=== PATIENT | male | born 1950 | race Caucasian/White ===

== ENCOUNTER → 2019-04-22 09:03 | Outpatient (BNVA) | payer MEDICARE, SELFPAY | PROVIDERS: Family Provider Family Medicine; PCP Family Medicine; Visit Provider Urology | DX: N40.1 Benign prostatic hyperplasia with lower urinary tract symptoms (principal); R97.20 Elevated prostate specific antigen [PSA] | CPT/HCPCS: 81001 ==

== ENCOUNTER → 2019-08-21 08:24 | Outpatient (BNVA) | payer MEDICARE, SELFPAY | PROVIDERS: Family Provider Family Medicine; PCP Family Medicine; Visit Provider Urology | DX: R97.20 Elevated prostate specific antigen [PSA] (principal); N40.1 Benign prostatic hyperplasia with lower urinary tract symptoms; R39.15 Urgency of urination | CPT/HCPCS: 81001; 84153 ==

== ENCOUNTER 2020-04-06 12:55 | Outpatient (CLI) | payer MEDICARE, SELFPAY ==
--- NOTE | 2020-04-06 13:11 | XR_ITS ---
WS: [id number] Exam: XR ribs LT 2V* [id number] Date/Time of Exam: 04/06/2020 1:11 PM Reason For Exam: LEFT SIDED RIB PAIN No acute rib fracture or pneumothorax. No pleural or pulmonary reactive changes. XR/XR ribs LT 2V* [id number] IMPRESSION: 1. No acute left rib fracture or pneumothorax.
--- NOTE | 2020-04-06 13:11 | XR_ITS ---
WS: [id number] Exam: XR chest 2V* [id number] Date/Time of Exam: 04/06/2020 1:11 PM Reason For Exam: LEFT SIDED RIB PAIN The lungs are clear and fully expanded. No acute rib fracture or pneumothorax is seen. Normal cardiom ediastinal structures and bony elements. Old posterior right fifth rib fracture noted. XR/XR chest 2V* [id number] IMPRESSION: 1. No acute cardiopulmonary finding. 2. No acute rib fracture or pneumothorax.
== END 2020-04-06 12:56 | disposition home or self-care (01) ==
PROVIDERS: PCP Family Medicine; Visit Provider Family Medicine
DX: R07.81 Pleurodynia (principal)
CPT/HCPCS: 71046; 71100

== ENCOUNTER 2020-08-31 14:03 | Emergency (ER) | payer MEDICARE, SELFPAY ==
[2020-08-31 14:15] VITALS: BP 165/96; PULSE 65; RESP 16; TEMP 36.8; O2SAT 98; BMI 29.6
--- NOTE | 2020-08-31 14:22 | ED_ITS ---
HPI - General Adult General: Chief complaint: Recheck/Abnormal Lab/Rx Stated complaint: Rabies shot Time Seen by Provider: 08/31/20 14:05 Source: patient Mode of arrival: ambulatory Limitations: no limitations History of Present Illness: HPI narrative: Patient is a 70-year-old male who presents to ED today along with his after they were referred here by the local health department for rabies post-exposure prophylaxis. Patient tells me him and his were helping out with two of their neighbors horses who suddenly became ill. states that one of the horses began foaming at the mouth and had diffuse neurological symptoms to the point where it could no longer stand or it would tip over. She states horse was acting very abnormal. They state shortly after the second horse then became ill with identical symptoms. There was no direct contact with animal saliva that they are aware of but states horse was slinging it everywhere . Animals were put down and [facility] came and sent one of the heads to be tested for rabies. Patient contacted local Health Dept who recommended starting rabies PEP. Onset (ago): day(s) Associated symptoms: Reports no associated symptoms; Deny chest pain, confusion, dyspnea, headache(s), malaise, nausea, rash or vomiting Treatments prior to arrival: none Review of Systems Const: Denies: fever(s), chills, body aches, change in appetite, change in weight, fatigue, malaise or night sweats Eyes: Denies: change in vision or blurry vision ENMT: Denies: throat pain or odynophagia Card: Denies: chest pain Resp: Denies: dyspnea GI: Denies: abdominal pain, nausea, vomiting or diarrhea Musc: Denies: neck pain, back pain or joint pain Skin/Breast: Denies: rash Neuro: Denies: headache(s), numbness in extremities, weakness in extremities, sensory changes, lack of coordination, difficulty walking, dizziness, confusion, behavioral changes, Slurred speech present, difficulty communicating thoughts, seizure-like activity or involuntary movements PFS ED PFSH: Medical History (Updated 08/31/20 @ 14:27 by STEPHANIE Bird) BPH loc w urin obs/LUTS Elevated PSA Lesion of bladder Reports transurethral resection in 2014. No additional information known Surgical History H/O eye surgery History of rhinoplasty History of vasectomy Family History Mother , 60 Cancer liver Father , 96 No problems noted. Social History Smoking and tobacco status: current every day smoker smokeless tobacco Alcohol intake: current Alcohol intake frequency: 0-2 Drinks per Day Marital status: Current occupational status: retired History of recent travel: No Physical Exam Const: COMMON NORMALS: no acute distress, patient oriented x3, no limitations and alert GENERAL APPEARANCE: cooperative ORIENTATION/CONSCIOUSNESS: Yes awake, Yes oriented to person, Yes oriented to place and Yes oriented to time HENMT: COMMON NORMALS: normocephalic and atraumatic HEAD & SCALP: normocephalic and atraumatic Extremity: GENERAL: Yes normal exam except as noted Neuro: RENATO COMA SCALE: document GCS findings Bison coma scale eye opening: Spontaneous Bison coma scale verbal response: Orientated Bison coma scale motor response: Obey commands Bison coma scale total score: 15 COMMON NORMALS: patient oriented x3 SENSORIUM/ORIENTATION: Yes alert, Yes oriented to person, Yes oriented to place and Yes oriented to time Skin: COMMON NORMALS: no rashes or lesions noted GENERAL SKIN EXAM: no rashes or lesions noted Course Vital Signs: Vital signs: Vital Signs Temperature 98.2 F 08/31/20 14:15 Pulse Rate 65 08/31/20 14:39 Respiratory Rate 16 08/31/20 14:39 Blood Pressure 165/96 08/31/20 14:39 Pulse Oximetry 98 08/31/20 14:39 Discharge Plan Discharge Patient Disposition: Home Clinical Impression: Need for post exposure prophylaxis for rabies Condition: Stable Prescriptions: No Action oxybutynin chloride 5 mg tablet 5 mg PO DAILY Qty: 30 RF: 6 loratadine [Allergy Relief (loratadine)] 10 mg tablet 10 mg PO DAILY PRNRF: 0 atenolol 50 mg tablet 50 mg PO DAILY RF: 0 tamsulosin 0.4 mg capsule 0.4 mg PO BID Qty: 60 RF: 12 Discharge Orders: Discharge ED (Routine); Ordered 08/31/20 Ordered By: Jacqueline Perez Referrals: Robles Cuevas MD [Primary Care Provider] - Patient Instructions: Rabies Vaccine (Injection), Rabies Immune Globulin (Injection), Rabies (ED) Activity Restrictions/Additional Instructions: You have been given a schedule for the remainder of your immunizations required for your full post exposure prophylaxis course. These can be completed at [facility]. Coding Level of Care Code ED Stick Feeder for Chg Fwd Exam Detailed
[2020-08-31 14:39] VITALS: BP 165/96; PULSE 65; RESP 16; O2SAT 98
[2020-08-31] MEDS: rabies vaccine 2.5 unit SDV IM (15:03)
== END 2020-08-31 15:15 | disposition home or self-care (01) ==
PROVIDERS: Emergency Provider Physician Assistant; PCP Family Medicine
DX: Z29.14 Encounter for prophylactic rabies immune globulin (principal); Z20.3 Contact with and (suspected) exposure to rabies; Z23 Encounter for immunization; F17.210 Nicotine dependence, cigarettes, uncomplicated
CPT/HCPCS: 90375; 90471; 90675; 96372; 99283

== ENCOUNTER → 2020-10-06 15:05 | Outpatient (BNVA) | payer MEDICARE, SELFPAY | PROVIDERS: PCP Family Medicine; Visit Provider Urology | DX: R97.20 Elevated prostate specific antigen [PSA] (principal); N40.1 Benign prostatic hyperplasia with lower urinary tract symptoms | CPT/HCPCS: 81003; 84153 ==

== ENCOUNTER 2021-09-30 07:28 | Outpatient (CLI) | payer MEDICARE, SELFPAY ==
[2021-09-30 08:35] LABS: Prostate Specific AG Urology 5.55 ng/mL (0-4)
== END 2021-09-30 07:29 | disposition home or self-care (01) ==
PROVIDERS: PCP Family Medicine; Visit Provider Urology
DX: N40.1 Benign prostatic hyperplasia with lower urinary tract symptoms; R39.15 Urgency of urination; R97.20 Elevated prostate specific antigen [PSA]
CPT/HCPCS: 36415; 51741; 51798; 81003; 84153; 99213

== ENCOUNTER 2021-10-14 08:10 | Outpatient (CLI) | payer MEDICARE, SELFPAY ==
[2021-10-14 08:53] LABS: Blood Urea Nitrogen 15 mg/dL (8-23)
[2021-10-14] MEDS: iohexol 350 mg/mL 100 mL Btl IV (09:03)
--- NOTE | 2021-10-14 09:30 | CT_ITS ---
WS: [id number] CT scan of the abdomen and pelvis without Oral and with IV contrast. Additional two-dimensional cor onal and sagittal reconstruction was performed. 10/14/2021 Clinical Data: LLQ abd pain Comparison: CT pelvis, 12/10/2018. DLP: 1352.[address] scans at [facility] use at least one of these dose optimization techniques: automated e xposure control; mA and/or kV adjustment per patient size (includes targeted exams where dose is matc hed to clinical indication); or iterative reconstruction. Findings: The lower lungs show no nodules, masses or effusions. The liver, gallbladder, spleen and pancreas are normal. There are probable cysts in the liver. The ri ght adrenal gland is normal. The left adrenal gland shows a round density measuring 2.7 cm which is p robably an adrenal adenoma or adrenal myolipoma. The kidneys show equal bilateral contrast excretion with a right renal cyst. No masses, hydronephrosi s or renal calculi are seen.. The abdominal aorta is normal in size with minimal calcification in the wall.. No appendicitis or diverticulitis is seen. The stomach, small bowel and colon are normal. No abscess, adenopathy, ascites, obstruction or free air is seen. The bladder is unremarkable. No inguinal hernia is seen. The prostate is enlarged. There is a small u mbilical hernia containing only fat. The bones of the lower thorax, lumbar spine, pelvis, and hips show only osteoarthritis of the lower t horacic vertebral bodies and degenerative disc narrowing at L4-L5 and L5-S1.. CT/CT abdomen pelvis w con* [id number] Impression: 1. Negative for acute intra-abdominal or pelvic abnormalities. 2. Probable left adrenal adenoma measuring 2.7 cm. 3. Prostate enlargement.
== END 2021-10-14 08:11 | disposition home or self-care (01) ==
LOC: RAD 08:12
PROVIDERS: PCP Family Medicine; Visit Provider Family Medicine
DX: R10.32 Left lower quadrant pain (principal); N40.0 Benign prostatic hyperplasia without lower urinary tract symptoms
CPT/HCPCS: 74177; 82565; 84520

== ENCOUNTER → 2021-11-02 10:00 | Outpatient (BNVA) | payer MEDICARE, SELFPAY | PROVIDERS: PCP Family Medicine; Visit Provider Family Medicine | DX: Z00.00 Encounter for general adult medical examination without abnormal findings (principal); Z79.899 Other long term (current) drug therapy | CPT/HCPCS: 80053; 80061 ==

== ENCOUNTER 2022-06-19 08:07 | Emergency (ER) | payer MEDICARE, SELFPAY ==
[2022-06-19 08:23] VITALS: BP 207/101; PULSE 74; TEMP 36.4; O2SAT 96; BMI 29.6
--- NOTE | 2022-06-19 08:32 | W.ED.MALEGU ---
Documented by User: STEPHANIE Stanford 06/20/22 13:31 HPI - Male Genitourinary General: Chief complaint: Urogenital-Male Stated complaint: cant urinate Time Seen by Provider: 06/19/22 08:09 History of Present Illness: Patient is a 72-year-old male comes to the ED unable to urinate. Patient has a history of BPH. He has never had urinary retention before. He says yesterday was able to urinate normally. This morning he woke up and had a full bladder and was only able to dribble out a little bit of urine. He is very uncomfortable due to bladder pressure. He endorses having a little bit of burning pain with urination. He is a current patient of Dr. Howard. He denies any fevers, chills, chest pain, abdominal pain, nausea/vomiting or bowel symptoms. Associated symptoms: Reports dysuria; Deny hematuria, nausea or vomiting Review of Systems Const: Denies: fever(s), chills or fatigue Eyes: Denies: change in vision or eye discomfort ENMT: Denies: throat pain, odynophagia, nasal discharge or nasal congestion Card: Denies: chest pain, palpitations, edema, swelling of feet/ankles, dyspnea on exertion or orthopnea Resp: Denies: dyspnea, productive cough or non-productive cough GI: Denies: abdominal pain, nausea, vomiting, diarrhea, constipation or hematochezia : Reports: difficulty urinating (can't urinate) and dysuria; Denies: flank pain or hematuria Musc: Denies: neck pain, back pain or extremity swelling Skin/Breast: Denies: rash or new lesions Neuro: Denies: headache(s), numbness in extremities or weakness in extremities [facility] ED PFSH: Medical History (Updated 06/19/22 @ 09:49 by STEPHANIE Stanford) BPH loc w urin obs/LUTS Elevated PSA Lesion of bladder Reports transurethral resection in 2014. No additional information known Surgical History H/O eye surgery History of rhinoplasty History of vasectomy Family History Mother , 60 Cancer liver Father , 96 No problems noted. Social History Smoking and tobacco status: current every day smoker smokeless tobacco Alcohol intake: current Alcohol intake frequency: 0-2 Drinks per Day Marital status: Current occupational status: retired Physical Exam Const: COMMON NORMALS: patient oriented x3 HENMT: COMMON NORMALS: normocephalic HEAD & SCALP: normocephalic MOUTH: Normal oral and palatal mucosa present THROAT: posterior oropharynx normal and uvula midline Neck/C-Spine: COMMON NORMALS: supple GENERAL: Yes normal visual inspection Resp: COMMON NORMALS: normal respiratory effort, No retractions, No use of accessory muscles and clear to auscultation bilaterally AUSCULTATION: clear to auscultation bilaterally Cardio: COMMON NORMALS: regular rate, regular rhythm, S1 normal heart sound present, S2 normal heart sound present, No gallops present (Cardio), No clicks present (Cardio), No murmurs present (Cardio) and Peripheral pulses 2+ throughout RATE: regular rate RHYTHM: regular rhythm HEART SOUNDS: S1 normal heart sound present and S2 normal heart sound present PERIPHERAL PULSES: Peripheral pulses 2+ throughout GI: COMMON NORMALS: Normal to inspection, nondistended, normoactive bowel sounds present, Soft to palpation, non-tender and no masses PALPATION: Yes Soft to palpation and Yes Bladder palpation abnormal : COMMON NORMALS: Yes no CVA tenderness BLADDER/KIDNEY EXAM: Yes no CVA tenderness and Yes Bladder palpation abnormal Bladder abnormal details: distended midway to the umbilicus Back/Pelvis: COMMON NORMALS: no CVA tenderness Extremity: COMMON NORMALS: normal to inspection Neuro: COMMON NORMALS: patient oriented x3 GAIT: Yes Normal gait present Skin: GENERAL SKIN EXAM: dry skin Course Vital Signs: Vital signs: Vital Signs Temperature 97.5 F L 06/19/22 08:23 Pulse Rate 70 06/19/22 10:13 Respiratory Rate 16 06/19/22 09:58 Blood Pressure 170/89 06/19/22 10:13 Pulse Oximetry 92 06/19/22 10:13 Oxygen Delivery Me thod 06/19/22 08:23 MDM - Male Medical Decision Making Patient is a 72-year-old male comes to the ED unable to urinate. Patient has a history of BPH. He has never had urinary retention before. He says yesterday was able to urinate normally.vitals are stable. Bladder palpated midway to the umbilicus. Nurse performed bladder scan patient had over 650 mL in bladder. Villanueva catheter was placed and 700 mL drained out. Patient felt immediate relief. UA was unremarkable. Patient diagnosed with acute retention of urine and I placed an order with case management for patient referred to Dr. Howard for follow-up. He was sent home with Villanueva catheter. Patient is a current patient of Dr. Howard's. Lab Data Laboratory Results Urine Color Yellow (Yellow) 06/19/22 08:59 Urine Appearance Clear (CLEAR) 06/19/22 08:59 Urine pH 5 (5-7) 06/19/22 08:59 Ur Specific [place] 1.010 (1.005-1.030) 06/19/22 08:59 Urine Protein Neg (Negative) 06/19/22 08:59 Urine Glucose (UA) Norm (Normal) 06/19/22 08:59 Urine Ketones Negative (Negative) 06/19/22 08:59 Urine Blood 3+ (Negative) H 06/19/22 08:59 Urine Nitrate Negative (Negative) 06/19/22 08:59 Urine Bilirubin Neg (Negative) 06/19/22 08:59 Urine Urobilinogen Norm mg/dL (Negative) 06/19/22 08:59 Ur Leukocyte Esterase Negative (Negative) 06/19/22 08:59 Urine RBC >100 /hpf (0-2) H 06/19/22 08:59 Urine WBC 0-4 /hpf (0-5) H 06/19/22 08:59 Ur Squamous Epith Cells 0-4 /hpf (0-5) H 06/19/22 08:59 Amorphous Sediment Not Reportable 06/19/22 08:59 Urine Bacteria Trace /hpf (NONE) 06/19/22 08:59 Discharge Plan Discharge Patient Disposition: Home Clinical Impression: Acute retention of urine Condition: Stable Prescriptions: No Action loratadine [Allergy Relief (loratadine)] 10 mg tablet 10 mg PO DAILY PRN azithromycin 250 mg tablet See Rx Instructions PO .COMPLEX Qty: 6 0RF Rx Instructions: For 250 mg dose pack: take 500 mg today (day 1), then 250 mg for 4 days (days 2-5) PO prednisone 20 mg tablet 20 mg PO DAILY Qty: 5 0RF promethazine-DM 6.25-15 mg/5 mL syrup 5 ml PO Q6H PRN (Reason: cough) Qty: 118 0RF tamsulosin 0.4 mg capsule See Rx Instructions .ROUTE .COMPLEX Qty: 180 3RF Dose Instruction: Take 1 capsule by mouth twice daily Rx Instructions: Take 1 capsule by mouth twice daily atenolol 50 mg tablet See Rx Instructions .ROUTE .COMPLEX Qty: 30 11RF Dose Instruction: Take 1/2 (one-half) tablet by mouth twice daily Rx Instructions: Take 1/2 (one-half) tablet by mouth twice daily Discharge Orders: Discharge ED (Routine); Ordered 06/19/22 Ordered By: Walter Hussein Referrals: Robles Cuevas MD [Primary Care Provider] - Discharge Diet: Regular Discharge Activity: Increase activity as tolerated Patient Instructions: Urinary Retention in Men (ED), Villanueva Catheter Placement and Care (ED) Activity Restrictions/Additional Instructions: Follow-up with medical provider as directed. Case management to be contacted in the next several days to set up an appointment with Dr. Howard for follow-up. Keep Villanueva catheter in place and nurse will discharge home with instructions on catheter care. Continue taking all home medications as previously prescribed. Return to the ER or your medical provider if condition worsens. Please read and understand discharge instructions. Thank you for choosing [facility] for your healthcare needs today. Please realize this is an emergency room and that we are providing you with a medical screening exam and this may not be complete and all inclusive of all the testing and or work up that you may need to determine your ailment or severity of your illness. It is very important that you follow up as instructed or that you return to the Emergency Department should you have concerns or if your condition changes or worsens in any way. Coding Level of Care Code ED Feeder Operator Automatic for g Fwd Documented by User: Edmundo Castillo DO 06/20/22 18:32 HPI - Male Genitourinary General: Chief complaint: Urogenital-Male Stated complaint: cant urinate Time Seen by Provider: 06/19/22 08:09 [facility] ED [facility]: Medical History (Updated 06/19/22 @ 09:49 by STEPHANIE Stanford) BPH loc w urin obs/LUTS Elevated PSA Lesion of bladder Reports transurethral resection in 2014. No additional information known Surgical History H/O eye surgery History of rhinoplasty History of vasectomy Family History Mother , 60 Cancer liver Father , 96 No problems noted. Social History Smoking and tobacco status: current every day smoker smokeless tobacco Alcohol intake: current Alcohol intake frequency: 0-2 Drinks per Day Marital status: Current occupational status: retired Course Vital Signs: Vital signs: Vital Signs Temperature 97.5 F L 06/19/22 08:23 Pulse Rate 70 06/19/22 10:13 Respiratory Rate 16 06/19/22 09:58 Blood Pressure 170/89 06/19/22 10:13 Pulse Oximetry 92 06/19/22 10:13 Oxygen Delivery Me thod 06/19/22 08:23 MDM - Male Medical Decision Making Patient is a 72-year-old male comes to the ED unable to urinate. Patient has a history of BPH. He has never had urinary retention before. He says yesterday was able to urinate normally.vitals are stable. Bladder palpated midway to the umbilicus. Nurse performed bladder scan patient had over 650 mL in bladder. Villanueva catheter was placed and 700 mL drained out. Patient felt immediate relief. UA was unremarkable. Patient diagnosed with acute retention of urine and I placed an order with case management for patient referred to Dr. Howard for follow-up. He was sent home with Villanueva catheter. Patient is a current patient of Dr. Howard's. Chart reviewed and patient discussed with midlevel. Agree with assessment and plan. Lab Data Laboratory Results Urine Color Yellow (Yellow) 06/19/22 08:59 Urine Appearance Clear (CLEAR) 06/19/22 08:59 Urine pH 5 (5-7) 06/19/22 08:59 Ur Specific [place] 1.010 (1.005-1.030) 06/19/22 08:59 Urine Protein Neg (Negative) 06/19/22 08:59 Urine Glucose (UA) Norm (Normal) 06/19/22 08:59 Urine Ketones Negative (Negative) 06/19/22 08:59 Urine Blood 3+ (Negative) H 06/19/22 08:59 Urine Nitrate Negative (Negative) 06/19/22 08:59 Urine Bilirubin Neg (Negative) 06/19/22 08:59 Urine Urobilinogen Norm mg/dL (Negative) 06/19/22 08:59 Ur Leukocyte Esterase Negative (Negative) 06/19/22 08:59 Urine RBC >100 /hpf (0-2) H 06/19/22 08:59 Urine WBC 0-4 /hpf (0-5) H 06/19/22 08:59 Ur Squamous Epith Cells 0-4 /hpf (0-5) H 06/19/22 08:59 Amorphous Sediment Not Reportable 06/19/22 08:59 Urine Bacteria Trace /hpf (NONE) 06/19/22 08:59 Discharge Plan Discharge Patient Disposition: Home Clinical Impression: Acute retention of urine Condition: Stable Prescriptions: No Action loratadine [Allergy Relief (loratadine)] 10 mg tablet 10 mg PO DAILY PRN azithromycin 250 mg tablet See Rx Instructions PO .COMPLEX Qty: 6 0RF Rx Instructions: For 250 mg dose pack: take 500 mg today (day 1), then 250 mg for 4 days (days 2-5) PO prednisone 20 mg tablet 20 mg PO DAILY Qty: 5 0RF promethazine-DM 6.25-15 mg/5 mL syrup 5 ml PO Q6H PRN (Reason: cough) Qty: 118 0RF tamsulosin 0.4 mg capsule See Rx Instructions .ROUTE .COMPLEX Qty: 180 3RF Dose Instruction: Take 1 capsule by mouth twice daily Rx Instructions: Take 1 capsule by mouth twice daily atenolol 50 mg tablet See Rx Instructions .ROUTE .COMPLEX Qty: 30 11RF Dose Instruction: Take 1/2 (one-half) tablet by mouth twice daily Rx Instructions: Take 1/2 (one-half) tablet by mouth twice daily Discharge Orders: Discharge ED (Routine); Ordered 06/19/22 Ordered By: Walter Hussein Referrals: Robles Cuevas MD [Primary Care Provider] - Discharge Diet: Regular Discharge Activity: Increase activity as tolerated Patient Instructions: Urinary Retention in Men (ED), Villanueva Catheter Placement and Care (ED) Activity Restrictions/Additional Instructions: Follow-up with medical provider as directed. Case management to be contacted in the next several days to set up an appointment with Dr. Howard for follow-up. Keep Villanueva catheter in place and nurse will discharge home with instructions on catheter care. Continue taking all home medications as previously prescribed. Return to the ER or your medical provider if condition worsens. Please read and understand discharge instructions. Thank you for choosing [facility] for your healthcare needs today. Please realize this is an emergency room and that we are providing you with a medical screening exam and this may not be complete and all inclusive of all the testing and or work up that you may need to determine your ailment or severity of your illness. It is very important that you follow up as instructed or that you return to the Emergency Department should you have concerns or if your condition changes or worsens in any way. Coding Level of Care Code ED Feeder Operator Automatic for Vargas Faye
[2022-06-19 08:58] VITALS: BP 155/65; PULSE 61; RESP 16; O2SAT 100
[2022-06-19 09:17] LABS: Bilirubin Urine Neg (Negative); Blood Urine 3+ (Negative); Glucose Urine UA Norm (Normal); Ketones Urine Negative (Negative); Nitrate Urine Negative (Negative); Protein Urine Neg (Negative); Urine Appearance Clear (CLEAR); Urine Color Yellow (Yellow); pH Urine 5 (5-7)
[2022-06-19 09:18] LABS: Add Urine Microscopic? YES; Leukocyte Esterase Urine Negative (Negative); Urobilinogen Urine Norm (Negative)
[2022-06-19 09:19] LABS: RBC Urine >100 /hpf (0-2)
[2022-06-19 09:20] LABS: Add Urine Culture? Yes; Bacteria Urine TRACE /hpf; Squamous Epithelial Cell Urine 0-4 /hpf (0-5); WBC Urine 0-4 /hpf (0-5)
[2022-06-19 09:58] VITALS: BP 170/89; PULSE 65; RESP 16; O2SAT 94
[2022-06-19 10:13] VITALS: BP 170/89; PULSE 70; O2SAT 92
--- NOTE | 2022-06-19 10:18 | PC.NURSE ---
PT TOTAL OUTPUT BY VOID 1400ML
--- NOTE | 2022-06-19 14:58 | DCPLANNER ---
Addendum entered by Ama De La Rosa 07/05/22 08:34: Patient had a follow up appointment scheduled with urology - patient did attend appointment. Addendum entered by Ama De La Rosa 06/20/22 08:57: Patient has a follow up appointment scheduled for Sunday, July 03, 2022 at 1:[address] Howard at urology. Original Note: home health manager had message to schedule a follow up appointment for patient with urology. home health manager sent patients information to the front office staff at urology. Patients information will be printed and reviewed. Clinic will call patient with appointment information.
== END 2022-06-19 10:18 | disposition home or self-care (01) ==
PROVIDERS: Emergency Provider Physician Assistant; PCP Family Medicine
DX: R33.9 Retention of urine, unspecified (principal); F17.220 Nicotine dependence, chewing tobacco, uncomplicated
CPT/HCPCS: 51702; 51798; 81001; 87086; 99284

== ENCOUNTER → 2022-07-03 12:28 | Outpatient (BNVA) | payer MEDICARE, SELFPAY | PROVIDERS: PCP Family Medicine; Visit Provider Urology | DX: N40.1 Benign prostatic hyperplasia with lower urinary tract symptoms (principal); R31.0 Gross hematuria; R33.8 Other retention of urine; R97.20 Elevated prostate specific antigen [PSA] | CPT/HCPCS: 52000; 99214 ==

== ENCOUNTER 2022-08-22 11:01 | Outpatient (CLI) | payer MEDICARE, SELFPAY | END 2022-08-22 11:02 | disposition home or self-care (01) | PROVIDERS: PCP Family Medicine; Visit Provider Urology | DX: R97.20 Elevated prostate specific antigen [PSA] (principal) | CPT/HCPCS: 36415; 84153 ==

== ENCOUNTER → 2022-08-30 09:45 | Outpatient (BNVA) | payer MEDICARE, SELFPAY | PROVIDERS: PCP Family Medicine; Visit Provider Urology | DX: N40.1 Benign prostatic hyperplasia with lower urinary tract symptoms (principal); R97.20 Elevated prostate specific antigen [PSA]; R33.8 Other retention of urine | CPT/HCPCS: 51741; 51798; 81003; 99213 ==

== ENCOUNTER 2023-05-09 08:38 | Outpatient (CLI) | payer MEDICARE, SELFPAY ==
--- NOTE | 2023-05-09 08:46 | XR_ITS ---
WS: [id number] Exam: XR hip LT 2-3V wo/w pel* [id number] Date/Time of Exam: 05/09/2023 8:50 AM Reason For Exam: hip pain No fracture or dislocation. The joint compartment is well-maintained. Normal soft tissues. IMPRESSION: 1. Unremarkable LEFT hip.
--- NOTE | 2023-05-09 08:46 | XR_ITS ---
WS: [id number] Exam: XR sacroiliac jts m 3V [id number] Date/Time of Exam: 05/09/2023 8:50 AM Reason For Exam: hip pain There is moderate DJD of both SI joints. The superior aspect of the RIGHT joint is probably beginning to fuse. No fracture or bone destruction seen. Bony changes in the pelvis that may indicate diffuse idiopathic skeletal hyperostosis. IMPRESSION: 1. Moderate DJD of both SI joints. 2. The superior aspect of the RIGHT joint is beginning to fuse. 3. Bony changes of the pelvis that may indicate diffuse idiopathic skeletal hyperostosis.
== END 2023-05-09 08:39 | disposition home or self-care (01) ==
LOC: RAD 08:40
PROVIDERS: PCP Family Medicine; Visit Provider Family Medicine
DX: M25.552 Pain in left hip (principal); M46.1 Sacroiliitis, not elsewhere classified
CPT/HCPCS: 72202; 73502; 80053; 80061; 84153; 85025

== ENCOUNTER → 2023-05-16 08:31 | Outpatient (BNVA) | payer MEDICARE, SELFPAY | PROVIDERS: PCP Family Medicine; Referring Provider Family Medicine; Visit Provider Surgery | DX: Z12.11 Encounter for screening for malignant neoplasm of colon (principal) | CPT/HCPCS: 99024; 99203 ==

== ENCOUNTER 2023-08-23 06:37 | Day surgery (SDC) | payer MEDICARE, SELFPAY ==
--- NOTE | 2023-08-23 06:05 | W.PM.OPSFHP ---
Same Day Surgery H&P Indication for Procedure/HPI DATE OF PROCEDURE: August 23, 2023 CHIEF COMPLAINT/INDICATIONFOR SURGICAL PROCEDURE: need for screening colonoscopy PREOP DIAGNOSIS: need for screening colonoscopy PLANNED PROCEDURE: Operation Date: 08/23/23 07:55 Proposed Procedures p 51985 colon G0121 screen colon A risk Z12.11(Not Applicable) - Bang Perkins MD Medications/Allergies* Home Medications Medication Instructions Recorded Confirmed Type loratadine 10 mg tablet (Allergy 10 mg PO DAILY PRN allergies 04/22/19 08/21/23 History Relief (loratadine)) acetaminophen 650 mg 650 mg PO Q8H PRN Pain 08/21/23 08/21/23 History tablet,extended release atenolol 50 mg tablet 25 mg PO BID 08/21/23 08/21/23 History tamsulosin 0.4 mg capsule 0.4 mg PO BID 08/21/23 08/21/23 History Allergies/Adverse Reactions Allergy/AdvReac Type Severity Reaction Status Date / Time No Known Allergies Allergy Verified 08/21/23 13:05 Pertinent History/Comorbid Conditions* Medical History (Updated 06/19/23 @ 07:37 by Robles Cuevas MD) Lesion of bladder Reports transurethral resection in 2014. No additional information known Elevated PSA BPH loc w urin obs/LUTS Surgical History (Updated 08/21/19 @ 08:55 by Jose Howard MD) H/O eye surgery History of rhinoplasty History of vasectomy Family History (Updated 04/22/19 @ 09:00 by Erin Olson RN) Father, 96 Mother, 60 Cancer Mother liver Social History Smoking and tobacco/nicotine status: current every day tobacco/nicotine user smokeless tobacco Alcohol intake: current Alcohol intake frequency: 0-2 Drinks per Day Household members: spouse Marital status: Current occupational status: retired Pertinent Exam Findings alert, oriented x 3 and clear to auscultation bilaterally Recommendations Surgery/Procedure today Coding Level of Care Code Acute Code for Chg Fwd
[2023-08-23 06:52] VITALS: BP 114/68; PULSE 56; RESP 16; TEMP 36.3; O2SAT 94; BMI 29.6
[2023-08-23] MEDS: sodium chloride 0.9% 1,000 ML 30 ML IV (06:52)
--- NOTE | 2023-08-23 07:15 | ANES.PREANE2 ---
Pre-Anesthetic Assessment Height/Weight: Height 1.96 m Weight 113.398 kg Temp Pulse Resp BP Pulse Ox O2 Del Method 97 F L 62 16 96/59 96 Room Air 08/23/23 08:00 08/23/23 08:00 08/23/23 08:00 08/23/23 08:00 08/23/23 08:00 08/23/23 08:00 Preop Diagnosis: need for screening colonoscopy Operation Date: 08/23/23 07:55 Proposed Procedures p [id number] colon [id number] screen colon A risk Z12.11(Not Applicable) - Bang Perkins MD Familial anesthetic complications: none Was Beta Leeanna taken within 24 hours: Yes Was Clonidine taken within 24 hours: N/A Last intake: Intake Last Liquid Date 08/22/23 Last Liquid Time 22:00 Last Solid Date 08/21/23 Last Solid Time 19:00 Social Tobacco (smokeless tobacco, not used in the last 24 hours) and No alcohol Exam alert, oriented x 3 and regular rate & rhythm Airway Mallampati: Class II Dentition: full History/ROS No significant history except as noted Pulmonary None reported CV/HEM Hypertension BPH Hepatic None reported GI None reported Metabolic None reported Musc/skel None reported Neuropsych None reported Anesthetic Plan ASA status: 2 Anesthesia: Anesthesia Evaluation and MAC Risk of > 500 ml blood loss (7ml/kg in children): No Medications/Allergies Home Medications Medication Instructions Recorded Confirmed Last Taken Type loratadine 10 mg tablet (Allergy 10 mg PO DAILY PRN allergies 04/22/19 08/23/23 08/22/23 History Relief (loratadine)) finasteride 5 mg tablet 5 mg PO QDAY #90 tabs 05/09/23 08/23/23 08/22/23 Rx albuterol sulfate 90 mcg/actuation 2 puff inhalation Q6H PRN 05/31/23 08/23/23 08/22/23 Rx aerosol inhaler (Ventolin HFA) shortness of breath or wheezing #8.5 grams acetaminophen 650 mg 650 mg PO Q8H PRN Pain 08/21/23 08/23/23 1 Week Ago History tablet,extended release ~08/14/23 atenolol 50 mg tablet 25 mg PO BID 08/21/23 08/23/23 08/23/23 History tamsulosin 0.4 mg capsule 0.4 mg PO BID 08/21/23 08/23/23 08/22/23 History Allergies Allergy/AdvReac Type Severity Reaction Status Date / Time No Known Allergies Allergy Verified 08/23/23 06:49 Current Medications Generic Name Dose Route Start Last Admin Trade Name Cami PRN Reason Stop Dose Admin Sodium Chloride 1,000 mls @ 30 mls/hr 08/23/23 06:45 08/23/23 06:52 Sodium Chloride 0.9% IV 30 mls/hr .Q24H ESTRELLITA Administration PFSH Anesthesia Medical History Lesion of bladder Reports transurethral resection in 2014. No additional information known Elevated PSA BPH loc w urin obs/LUTS Surgical History H/O eye surgery History of rhinoplasty History of vasectomy Family History Mother , 60 Cancer liver Father , 96 No problems noted. Social History Smoking and tobacco/nicotine status: current every day tobacco/nicotine user smokeless tobacco Alcohol intake: current Alcohol intake frequency: 0-2 Drinks per Day Household members: spouse Marital status: Current occupational status: retired Data Anesthesia Cardiac Studies: No Data to Display
[2023-08-23 08:00] VITALS: BP 96/59; PULSE 62; RESP 16; TEMP 36.1; O2SAT 96
--- NOTE | 2023-08-23 08:06 | ANE.PACU2 ---
Inpatient post-anesthesia follow up: Vital signs: Temperature 97 F Pulse Rate 62 Respiratory Rate 12 Blood Pressure 96/59 Pulse Oximetry 96 Oxygen Delivery Me thod Room Air Oxygen Flow Rate Fraction of Inspir ed Oxygen Hydration adequate: Yes Nausea and vomiting: No Pain level: 0 Mental status: Baseline
[2023-08-23 08:14] VITALS: BP 108/67; PULSE 61; RESP 18; O2SAT 98
== END 2023-08-23 08:27 | disposition home or self-care (01) ==
PROVIDERS: PCP Family Medicine; Visit Provider Surgery
PROC: 0DJD8ZZ Inspection of Lower Intestinal Tract, Via Natural or Artificial Opening Endoscopic (ICD-10-PCS; CPT 45378; principal; 2023-08-23 07:55)
DX: Z12.11 Encounter for screening for malignant neoplasm of colon (principal); N40.1 Benign prostatic hyperplasia with lower urinary tract symptoms; N13.8 Other obstructive and reflux uropathy; F17.200 Nicotine dependence, unspecified, uncomplicated
CPT/HCPCS: G0121; J2704; J3490; J7030

== ENCOUNTER 2023-11-14 13:24 | Outpatient (CLI) | payer MEDICARE, SELFPAY ==
--- NOTE | 2023-11-14 13:33 | XR_ITS ---
WS: [id number] Examination: XR chest 2V* [id number] Reason for Exam: cough Date: 11/14/2023 Comparison: None Findings: The heart is not enlarged. The mediastinum is not widened. The tung are not enlarged. There is no pulmonary edema or pleural effusion. There is no dense consolidative change. Hypertrophic changes of the thoracic spine are present. There is an old posterior right rib fracture noted. XR/XR chest 2V* [id number] IMPRESSION: No acute lung process is seen.
== END 2023-11-14 13:25 | disposition home or self-care (01) ==
LOC: RAD 13:26
PROVIDERS: PCP Family Medicine; Visit Provider Family Medicine
DX: J20.4 Acute bronchitis due to parainfluenza virus (principal); M89.48 Other hypertrophic osteoarthropathy, other site
CPT/HCPCS: 71046

== ENCOUNTER 2024-05-05 08:18 | Outpatient (CLI) | payer MEDICARE, SELFPAY ==
--- NOTE | 2024-05-05 08:21 | MR_ITS ---
WS: [id number] MRI RIGHT KNEE HISTORY: R KNEE INTERNAL DERANGEMENT, fall 2 months ago. Medial pain. COMPARISON: None available. Anterior cruciate ligament: Intact. Posterior cruciate ligament: Intact. Medial collateral ligament: There is a very subtle area of increased T2 signal in the proximal MCL at the femoral condyle insertion site. No full-thickness tear. Posterior lateral corner structures: Intact. Medial menisci: Subtle increased T2 signal in the central posterior horn but no tear identified. Anterior horn is normal. Lateral meniscus: Intact. Normal signal, size and shape. Extensor mechanism: Distal quadriceps tendon and patellar tendons are intact. Fluid and soft tissue: No joint effusion. No Andrew's cyst. Osseous and articular structures: Patellofemoral compartment: Mild narrowing the patellofemoral joint space with mild chondromalacia. There is a tiny amount of edema near the patellar eminence. Patellar retinaculum are intact. Medial compartment: Very mild narrowing of the medial compartment with thinning and fissuring of the cartilage. No marrow edema along the weightbearing surface of the femoral condyle. There is a tiny amount of marrow edema in the medial femoral condyle at the MCL attachment. Lateral compartment: Mild narrowing with minimal chondromalacia. No fracture or marrow edema. MR/MR knee RT wo con* [id number] IMPRESSION: 1. Minimal sprain involving the proximal medial collateral ligament. Increased T2 signal in the proximal MCL where it attaches to the femoral condyle and the re is also small amount of marrow edema indicating a prior injury. There is no fracture or complete tear of the MCL. 2. No ACL tear. 3. No meniscal tear. 4. Mild narrowing patellofemoral joint with chondromalacia and a small amount of marrow edema at the patellar eminence. 5. Mild narrowing of the medial and lateral compartments with mild chondromala jeancarlos.
== END 2024-05-05 08:19 | disposition home or self-care (01) ==
LOC: RAD 08:19
PROVIDERS: PCP Family Medicine; Visit Provider Orthopaedic Surgery
DX: M23.91 Unspecified internal derangement of right knee (principal); M17.11 Unilateral primary osteoarthritis, right knee; R93.6 Abnormal findings on diagnostic imaging of limbs; M94.261 Chondromalacia, right knee
CPT/HCPCS: 73721

== ENCOUNTER → 2024-10-22 12:24 | Outpatient (BNVA) | payer MEDICARE, SELFPAY | PROVIDERS: PCP Family Medicine; Visit Provider Family Medicine | DX: R97.20 Elevated prostate specific antigen [PSA] (principal); Z00.00 Encounter for general adult medical examination without abnormal findings; E78.5 Hyperlipidemia, unspecified; N40.1 Benign prostatic hyperplasia with lower urinary tract symptoms | CPT/HCPCS: 80053; 80061; 84153; 85025 ==

== ENCOUNTER → 2024-12-09 06:56 | Outpatient (BNVA) | payer MEDICARE, SELFPAY | PROVIDERS: PCP Family Medicine; Visit Provider Podiatrist Foot & Ankle Surgery | DX: M79.671 Pain in right foot (principal); M79.672 Pain in left foot; R09.89 Other specified symptoms and signs involving the circulatory and respiratory systems; M77.41 Metatarsalgia, right foot; M77.42 Metatarsalgia, left foot; Q66.71 Congenital pes cavus, right foot; Q66.72 Congenital pes cavus, left foot; G62.9 Polyneuropathy, unspecified | CPT/HCPCS: 73630; 99204 ==

== ENCOUNTER 2024-12-16 09:14 | Outpatient (CLI) | payer MEDICARE, SELFPAY ==
--- NOTE | 2024-12-16 09:30 | USR_ITS ---
PROCEDURE INFORMATION: Exam: US Bilateral Noninvasive Physiologic Study of the Lower Extremity Arteries, Limited Exam date and time: 12/16/2024 9:01 AM Age: 74 years old Clinical indication: Pain; Leg, lower; Bilateral; Additional info: Decreased pedal pulses TECHNIQUE: Imaging protocol: Bilateral Limited bilateral noninvasive physiologic studies of lower extremity arteries. Waveforms were obtained and evaluated. Images were documented and archived. Exam is limited. COMPARISON: US soft tissue/extremity [id number] 12/17/2017 3:17 PM FINDINGS: Right brachial pressure is 122, PT 183, DP 176 and digit 96. The right ankle-brachial index is 1.38. TBI on the right is 0.72. Left brachial pressure is 133, PT 160, DP 169, and digit 112. The left ankle-brachial index is 1.27. TBI on the left is 0.84. US/CV ankle brachial index [id number] IMPRESSION: No evidence of stenosis or occlusion in the lower extremity.
== END 2024-12-16 09:15 | disposition home or self-care (01) ==
LOC: RAD 09:16
PROVIDERS: PCP Family Medicine; Visit Provider Podiatrist Foot & Ankle Surgery
DX: R09.89 Other specified symptoms and signs involving the circulatory and respiratory systems (principal); M79.662 Pain in left lower leg; M79.661 Pain in right lower leg
CPT/HCPCS: 93922

== ENCOUNTER → 2025-01-19 07:10 | Outpatient (BNVA) | payer MEDICARE, SELFPAY | PROVIDERS: PCP Family Medicine; Visit Provider Podiatrist Foot & Ankle Surgery | DX: M77.41 Metatarsalgia, right foot (principal); M77.42 Metatarsalgia, left foot; Q66.70 Congenital pes cavus, unspecified foot; G62.9 Polyneuropathy, unspecified; Q66.71 Congenital pes cavus, right foot; Q66.72 Congenital pes cavus, left foot | CPT/HCPCS: 99213 ==

== ENCOUNTER 2025-01-20 13:19 | Outpatient (CLI) | payer MEDICARE, SELFPAY | END 2025-01-20 13:20 | disposition home or self-care (01) | LOC: SPT 13:19 | PROVIDERS: PCP Family Medicine; Visit Provider Podiatrist Foot & Ankle Surgery | DX: Z46.89 Encounter for fitting and adjustment of other specified devices (principal); M77.40 Metatarsalgia, unspecified foot; M20.21 Hallux rigidus, right foot; M20.22 Hallux rigidus, left foot | CPT/HCPCS: 97161 ==